=== PATIENT | female | born 1955 | race Caucasian/White ===

== ENCOUNTER 2017-09-27 17:21 | Emergency (ER) | payer MEDICARE ==
--- NOTE | 2017-09-27 18:39 | RAD ---
CHEST 1 VIEW: Date: 09/27/17 HISTORY: Chest pain. COMPARISON: 11/28/16. FINDINGS: Portable upright chest demonstrates normal cardiac silhouette. Pulmonary vessels are normal. Costophr enic angles are clear. No mass. No consolidation. No pneumothorax or osseous abnormalities. IMPRESSION: Mild pulmonary vascular prominence. Correlate for volume overload. POS: [facility]
[2017-09-27 18:59] LABS: #Basophils 0.1 thou/uL (0.0-0.2); #Eosinphils 0.4 thou/uL (0.0-0.7); #Lymphocytes 3.6 thou/uL (1.20-3.40); #Monocytes 0.6 thou/uL (0.11-0.59); #Neutrophils 3.4 thou/uL (1.40-6.50); %Basophils 1.2 % (0.0-1.0); %Eosinophils 4.7 % (0.0-10.0); %Lymphocytes 44.9 % (21.0-51.0); %Monocytes 6.9 % (0.0-10.0); %Neutrophils 42.4 % (42.0-75.0); Hemoglobin 13.7 g/dL (12.0-16.0); Mean Corpuscular HGB CONC 33.7 g/dL (32.0-36.0); Mean Corpuscular Hemoglobin 33.9 pg (27.0-31.0); Mean Platelet Volume 7.6 fL (7.4-10.4); Platelet Count 212 thou/uL (130-400); Red Blood Cell (RBC) Count 4.04 mill/uL (4.20-5.40); White Blood Cell (WBC) Count 8.1 thou/uL (4.8-10.8)
[2017-09-27 19:06] LABS: PTT 29.5 SEC (22.9-36.1)
[2017-09-27 19:21] LABS: ALT (SGPT) 15 U/L (8-55); AST (SGOT) 36 U/L (5-34); Albumin 3.6 g/dL (3.5-5.0); Alkaline Phosphatase 119 U/L (40-150); Anion Gap 14 mmol/L (10-20); BUN (Urea Nitrogen) 18 mg/dL (9.8-20.1); Bilirubin, Total 0.4 mg/dL (0.2-1.2); CK (CPK) 59 U/L (29-168); Calc. Creatinine Clearance 0 mL/min (70-130); Calcium 9.3 mg/dL (7.8-10.44); Carbon Dioxide 28 mmol/L (22-29); Chloride 101 mmol/L (98-107); Estimated GFR-MDRD 79; Globulin 3.6 g/dL (2.4-3.5); Glucose 151 mg/dL (70-105); Lipase 33 U/L (8-78); Potassium 3.8 mmol/L (3.5-5.1); Protein, Total 7.2 g/dL (6.0-8.3); Sodium 139 mmol/L (136-145)
[2017-09-27 19:25] LABS: CKMB 0.8 ng/mL (0-6.6); Troponin I Less than 0.010 ng/mL (< 0.028)
== END 2017-09-27 20:09 | disposition home or self-care (01) ==
LOC: ERS 17:21
DX: R07.2 Precordial pain (principal); I25.10 Atherosclerotic heart disease of native coronary artery without angina pectoris; J45.909 Unspecified asthma, uncomplicated; E11.9 Type 2 diabetes mellitus without complications; E78.5 Hyperlipidemia, unspecified; F41.9 Anxiety disorder, unspecified; F32.9 Major depressive disorder, single episode, unspecified
CPT/HCPCS: 36415; 71045; 80053; 82553; 83690; 84484; 85025; 85610; 85730; 93005

== ENCOUNTER 2018-03-21 11:35 | Inpatient (IN) | payer MEDICARE ==
[2018-03-21] MEDS ORDERED: Naloxone HCl 0.4 mg/ml Vial ONE (12:00)
[2018-03-21 12:12] LABS: #Basophils 0.1 thou/uL (0.0-0.2); #Eosinphils 0.4 thou/uL (0.0-0.7); #Lymphocytes 3.5 thou/uL (1.20-3.40); #Monocytes 0.6 thou/uL (0.11-0.59); #Neutrophils 3.9 thou/uL (1.40-6.50); %Basophils 0.7 % (0.0-1.0); %Eosinophils 4.3 % (0.0-10.0); %Lymphocytes 41.9 % (21.0-51.0); %Monocytes 6.9 % (0.0-10.0); %Neutrophils 46.2 % (42.0-75.0); Hemoglobin 12.1 g/dL (12.0-16.0); Mean Corpuscular HGB CONC 33.9 g/dL (32.0-36.0); Mean Corpuscular Hemoglobin 33.1 pg (27.0-31.0); Mean Corpuscular Volume 97.8 fL (78.0-98.0); Mean Platelet Volume 7.9 fL (7.4-10.4); Platelet Count 215 thou/uL (130-400); RBC Distribution Width 11.4 % (11.5-14.5); Red Blood Cell (RBC) Count 3.66 mill/uL (4.20-5.40); White Blood Cell (WBC) Count 8.4 thou/uL (4.8-10.8)
[2018-03-21 12:29] LABS: pH, Arterial 7.35 (7.35-7.45)
[2018-03-21 12:30] LABS: Actual Bicarbonate (HCO3a) 33.3 mEq/L (22-28); CO2 Tension 62.1 mmHg (35.0-45.0); Hematocrit-ABG 38.8 % (36.0-47.0); Hemoglobin (Hb) 11.9 g/dL (12.0-16.0); O2 Tension (PaO2) 73.3 mmHg (> 80.0)
[2018-03-21 12:31] LABS: ALT (SGPT) 16 U/L (8-55); AST (SGOT) 34 U/L (5-34); Albumin 3.5 g/dL (3.5-5.0); Alkaline Phosphatase 159 U/L (40-150); Anion Gap 12 mmol/L (10-20); BUN (Urea Nitrogen) 20 mg/dL (9.8-20.1); Bilirubin, Total 0.5 mg/dL (0.2-1.2); Calc. Creatinine Clearance 0 mL/min (70-130); Calcium 9.3 mg/dL (7.8-10.44); Carbon Dioxide 31 mmol/L (22-29); Chloride 100 mmol/L (98-107); Estimated GFR-MDRD 54; Globulin 3.7 g/dL (2.4-3.5); Glucose 303 mg/dL (70-105); Lipase 15 U/L (8-78); Potassium 4.2 mmol/L (3.5-5.1); Protein, Total 7.2 g/dL (6.0-8.3); Sodium 139 mmol/L (136-145)
[2018-03-21 12:31] LABS: ALV-art Gradient 48.715 (0-20); Analyzer IN Cardio ER; Calcium, Ionized 1.2 mmol/L (1.12-1.30); Puncture Site LBA
--- NOTE | 2018-03-21 12:47 | RAD ---
FRONTAL VIEW CHEST: COMPARISON: 09/27/17. INDICATION: Altered mental status. FINDINGS: The cardiac silhouette is enlarged. There is limited visualization at the lung base. The upper to m id lung zones are clear bilaterally. There is vascular prominence. IMPRESSION: 1. Congestive heart failure. 2. Limited visualization at the lung bases. POS: [facility]
[2018-03-21 13:42] LABS: Acetaminophen Less than 6.0 mcg/mL (10.0-30.0); Alcohol Less than 10 mg/dL (Less than 10); Magnesium 1.7 mg/dL (1.6-2.6); Salicylate Less than 8.0 mg/dL (15.0-30.0)
--- NOTE | 2018-03-21 13:46 | CT ---
CT OF THE BRAIN WITHOUT CONTRAST: INDICATION: Altered mental status and lethargy. COMPARISON: Prior exam dated 01/15/17. FINDINGS: No acute infarct, hemorrhage, or hydrocephalus is present. The septum pellucidum and third ventricle are midline. Mastoid air cells are clear. Visualized sinus is clear. The skull is intact. IMPRESSION: No acute intracranial abnormality. POS: [facility]
[2018-03-21 14:20] LABS: CKMB 0.9 ng/mL (0-6.6); Troponin I Less than 0.010 ng/mL (< 0.028)
[2018-03-21] MEDS ORDERED: Furosemide 40 MG/4 ML VIAL ONE (14:28)
[2018-03-21] MEDS ORDERED: Furosemide 20 MG/2 ML VIAL ONE (14:28)
[2018-03-21 15:04] LABS: Bilirubin Small (Negative); Blood, Urine Negative (Negative); Clarity CLEAR (Clear); Glucose, Urine (Dipstick) 500 mg/dL (Negative); Leukocyte Negative (Negative); Nitrite Negative (Negative); Protein, Urine (Dipstick) Negative (Neg-Trace); Specific Gravity, Urine 1.036 (1.002-1.036); pH, Urine 5.5 (5.0-9.0)
--- NOTE | 2018-03-21 15:08 | HP ---
PRIMARY CARE PHYSICIAN: Adrien Bowen M.D. REASON FOR ADMISSION: Acute encephalopathy. HISTORY OF PRESENT ILLNESS: A 62-year-old female who has underlying history of morbid obesity and sl eep apnea who is noncompliant with her CPAP use at home. She took extra Ashton during night time for her pain and subsequently she was more lethargic. She was less responsive and that is why she was br ought to emergency room for evaluation. Unfortunately, this patient is lethargic, sleepy and she is not able to provide any history, but history obtained from ER physician. In the emergency room, rosa ent had blood gas done which showed CO2 retention. The patient was kept on BiPAP. After that, alberto nt was slightly started responding. Initially in the emergency room, Narcan was tried but that did n ot significantly change her lethargy and they tried ammonia after that the patient slightly woke up, but again she went to sleep. At this point because of her lethargy and sleepiness, it was not safe fo r her discharge from the ER to the home and the patient is requiring BiPAP and that is why we are goi ng to admit this patient in [facility]. REVIEW OF SYSTEMS: All review of systems tried to review the patient, but unable to review at this p oint because of altered mental status. PAST MEDICAL HISTORY: Chronic respiratory failure requiring home oxygen, morbid obesity with obesity hypoventilation syndrome, obstructive sleep apnea noncompliance with the CPAP machine, diabetes type 2, chronic pain disorder, gastroesophageal reflux disease, dyslipidemia, asthma, overactive bladder, chronic insomnia, chronic diastolic heart failure, secondary to right-sided heart failure from cor p ulmonale from obesity hypoventilation syndrome, peripheral neuropathy. PAST SURGICAL HISTORY: Cholecystectomy, tubal ligation, hernia repair, wrist surgery, tummy tuck stefano vitaly, sciatic nerve resection. PAST PSYCHIATRIC HISTORY: Insomnia, chronic pain disorder, anxiety and depression. FAMILY HISTORY: Positive for COPD to her mother. No family history of coronary artery disease, stro ke or cancer. SOCIAL HISTORY: Patient lives by herself. Her mother checks on weekdays. No history of tobacco, al cohol or illicit drug abuse. ALLERGIES: CODEINE, DEMEROL, REGLAN, MORPHINE. CODE STATUS: FULL CODE. Patient's mother is surrogate decision maker. CURRENT HOME MEDICATIONS: Paxil 40 mg p.o. daily, Lasix 20 mg p.o. daily, Ashton 10 one tablet q.4 ho urly p.r.n., gabapentin 600 mg twice daily, Synthroid 25 mcg p.o. daily, atenolol 100 mg p.o. daily, amlodipine 10 mg p.o. daily, pravastatin 40 mg p.o. at bedtime, Protonix 40 mg twice daily, Phenergan 25 mg 3 times daily p.r.n. EMERGENCY ROOM COURSE: Patient is given Lasix 60 mg, IV fluid 500 mL, Narcan 0.4 mg. PHYSICAL EXAMINATION: VITAL SIGNS: On arrival, blood pressure 112/81, pulse 60, respiratory rate 13, saturation 91% on truong m air, weight 155.1 kilograms, temperature 98.8. GENERAL: The patient is currently lethargic, sleepy, only responsive to noxious stimuli. She is on BiPAP. HEAD: Normocephalic, atraumatic. EYES: Pupils round, reactive to light. Extraocular muscle intact. ENT: Oropharynx within normal limits. Moist mucous membranes. No oral lesion, no pharyngeal erythe ma, no exudate. NECK: Supple, no JVD, short neck. Difficult to assess JVD though. LUNGS: Clear to auscultation anteriorly without any rhonchi or rales. CARDIAC: S1, S2 appears regular. No murmur, no gallop, no rub. ABDOMEN: Morbid obesity limiting examination. The patient has soft abdomen. No distention. Bowel sounds present, no organomegaly, no mass. BACK: Examination unremarkable, no CVA tenderness. EXTREMITIES: Upper extremity passive movements of all joints are normal. Lower extremity passive mo vements of all joints are normal. NEUROLOGIC: Detailed neurological examination is not possible because of altered mental status. Pat ient is slightly sleepy and lethargic on BiPAP. IMAGING DATA AND SIGNIFICANT DIAGNOSTIC LABORATORY DATA: EKG showing normal sinus rhythm, low voltag e QRS complex. CT brain based on my review, no acute intracranial process. Chest x-ray reported as finding suggestive of congestive heart failure, cardiomegaly. CBC: WBC 8.4, hemoglobin 12.1, platel et 215. ABG: PH 7.35, pCO2 62.1, pO2 of 73.3, bicarbonate 33.3, saturation 95%. BMP: Sodium 139, potassium 4.2, chloride 100, carbon dioxide 31, anion gap 12, BUN 20, creatinine 1.03, glucose 303, c alcium 9.3, magnesium 1.7. LFT: AST 34, ALT 16, alkaline phosphatase 159, albumin 3.5, lipase 15. TSH 8.69. BNP 53.0. Cardiac enzymes negative. Ammonia level 57. Serum drug screen; salicylate lev el less than 8. Acetaminophen level less than 6. Blood alcohol level less than 10. ASSESSMENT AND PLAN/IMPRESSION: 1. Acute encephalopathy, likely due to CO2 narcosis or pain medication. Patient's CT brain is negat rosy for any acute intracranial process. Her CBC is normal. BMP showing hyperglycemia and her TSH is also within normal limit. Her CO2 is also elevated. At this point, we will hold on all sedative me dications. We will continue with BiPAP and we will closely monitor overnight in IMCU. Pulmonary mariya up will be consulted for opinion. 2. Morbid obesity with obesity hypoventilation syndrome/obstructive sleep apnea. Patient has chroni c CO2 retention and she is noncompliant with continuous positive airway pressure machine. Pulmonary group was consulted. The patient needs to use continuous positive airway pressure machine at home al l the time to prevent recurrent admission for CO2 narcosis. 3. Chronic respiratory acidosis with metabolic compensation from problem #2. 4. Chronic diastolic heart failure. Currently, patient appears to be euvolemic. Her chest x-ray sh ows pulmonary vascular congestion, but clinical examination is showing euvolemic status. We will con tinue Lasix 20 mg p.o. daily. Patient is given Lasix 60 mg in the emergency room. 5. Hypothyroidism. TSH is elevated and that is why we will increase dose of levothyroxine 250 mcg p .o. daily. 6. Dyslipidemia. We will continue pravastatin 40 mg p.o. at bedtime. 7. Hypertension. We will continue atenolol 100 mg p.o. daily and amlodipine 10 mg p.o. daily. If p ulse rate is less than 60, then we will hold atenolol. If blood pressure is less than 120, then we w ill hold amlodipine as well. 8. Gastroesophageal reflux disease. We will continue Protonix 40 mg p.o. daily. 9. Diabetes type 2, not well controlled. We will continue with insulin as per sliding scale protoco l. We will continue Levemir 25 units subcu at bedtime. 10. Asthma. We will continue DuoNeb q.6 hourly p.r.n. basis. 11. Deep venous thrombosis prophylaxis. Lovenox 40 mg subcu daily. 12. Gastrointestinal prophylaxis, Protonix 40 mg p.o. daily. CODE STATUS: The patient is FULL CODE. Patient's mother is surrogate decision maker. Disposition plan based on clinical course. We are expecting patient's stay in hospital more than 2 m idnights. Plan of care discussed with the patient in detail.
[2018-03-21 15:14] LABS: Amphetamine Not Detected (NotDetected); Barbiturates Screen Not Detected (NotDetected); Benzodiazepine Screen Detected (NotDetected); Cocaine Metabolite Screen Not Detected (NotDetected); Medtox Control Line Valid? VALID (VALID); Medtox Reader # READER 1; Methadone Not Detected (NotDetected); Methamphetamine Not Detected (NotDetected); Opiate Screen Detected (NotDetected); Oxycodone Screen Not Detected (NotDetected); Phencyclidine (PCP) Not Detected (NotDetected); THC/Cannabinoid Screen Not Detected (NotDetected); Tricyclic Screen Not Detected (NotDetected)
[2018-03-21 16:02] LABS: Troponin I Less than 0.010 ng/mL (< 0.028)
[2018-03-21 18:41] VITALS: BMI 57.6
[2018-03-21] MEDS ORDERED: Chloraseptic Spray 180 ml Bottle PO PRN (19:08)
[2018-03-21] MEDS ORDERED: Dextrose 50% Abboject 50 ML SYRINGE SLOW IVP PRN (19:08)
[2018-03-21] MEDS ORDERED: HumaLOG 300 UNITS/3 ML VIAL SC PRN (19:08)
[2018-03-21] MEDS ORDERED: Eucerin (Mineral Oil/Petrolatum,White) 30 gm Jar TOP PRN (19:08)
[2018-03-21] MEDS ORDERED: Sodium Chloride 0.65% Nasal 44 ML BOT EA NARE PRN (19:08)
[2018-03-21] MEDS ORDERED: Artificial Tears 18 DROP/0.9 ML EA EYE PRN (19:08)
[2018-03-21] MEDS ORDERED: hydrALAZINE 20 MG/ML VIAL SLOW IVP PRN (19:08)
[2018-03-21] MEDS ORDERED: Acetaminophen 325 MG TAB PO PRN (19:08)
[2018-03-21] MEDS ORDERED: Milk Of Magnesia 30 ML UDCUP PO PRN (19:08)
[2018-03-21] MEDS ORDERED: Loperamide HCl 2 MG CAP PO PRN (19:08)
[2018-03-21] MEDS ORDERED: Ondansetron ODT 4 MG TAB PO PRN (19:08)
[2018-03-21] MEDS ORDERED: Ondansetron HCl/PF 4 MG/2 ML Vial IVP PRN (19:08)
[2018-03-21] MEDS ORDERED: Mag-Al 1200 mg/1200 mg/30 ML UDCUP PO PRN (19:08)
[2018-03-21] MEDS ORDERED: Diabetic Tussin 200 MG/10 ML UDCUP PO PRN (19:08)
[2018-03-21] MEDS ORDERED: Senokot 8.6 MG TAB PO PRN (19:08)
[2018-03-21] MEDS ORDERED: Dextrose 5% in Water 1,000 ML IV PRN (19:08)
[2018-03-21 19:20] LABS: Troponin I Less than 0.010 ng/mL (< 0.028)
[2018-03-21] MEDS: Insulin Glargine 25 UNITS in Pre-Filled Syringe 1 EACH SC SCH (20:58)
[2018-03-21] MEDS: Pravastatin Sodium 40 MG TAB PO SCH (20:58)
[2018-03-22 04:21] LABS: #Eosinphils 0.3 thou/uL (0.0-0.7); #Lymphocytes 3.1 thou/uL (1.20-3.40); #Monocytes 0.6 thou/uL (0.11-0.59); #Neutrophils 4.8 thou/uL (1.40-6.50); %Basophils 0.5 % (0.0-1.0); %Eosinophils 3.3 % (0.0-10.0); %Lymphocytes 34.8 % (21.0-51.0); %Monocytes 6.6 % (0.0-10.0); %Neutrophils 54.9 % (42.0-75.0); Hemoglobin 12.3 g/dL (12.0-16.0); Mean Corpuscular HGB CONC 33.8 g/dL (32.0-36.0); Mean Corpuscular Hemoglobin 33.1 pg (27.0-31.0); Mean Corpuscular Volume 97.9 fL (78.0-98.0); Mean Platelet Volume 7.7 fL (7.4-10.4); Platelet Count 214 thou/uL (130-400); RBC Distribution Width 11.4 % (11.5-14.5); Red Blood Cell (RBC) Count 3.73 mill/uL (4.20-5.40); White Blood Cell (WBC) Count 8.8 thou/uL (4.8-10.8)
[2018-03-22 04:43] LABS: Anion Gap 11 mmol/L (10-20); BUN (Urea Nitrogen) 15 mg/dL (9.8-20.1); Calc. Creatinine Clearance 185 mL/min (70-130); Calcium 9.3 mg/dL (7.8-10.44); Carbon Dioxide 37 mmol/L (22-29); Chloride 97 mmol/L (98-107); Estimated GFR-MDRD 75; Glucose 196 mg/dL (70-105); Potassium 3.7 mmol/L (3.5-5.1); Sodium 141 mmol/L (136-145)
[2018-03-22] MEDS: HumaLOG 300 UNITS/3 ML VIAL SC PRN ×3 (06:34→18:31)
[2018-03-22] MEDS: Levothyroxine Sodium 50 MCG TAB PO SCH (06:34)
[2018-03-22] MEDS: Enoxaparin Sodium 40 MG/0.4 ML SYRINGE SC SCH (08:57)
[2018-03-22] MEDS: Atenolol 50 MG TAB PO SCH (08:57)
[2018-03-22] MEDS: Amlodipine 10 MG TAB PO SCH (08:58)
[2018-03-22] MEDS: PARoxetine 20 MG TAB PO SCH (08:59)
[2018-03-22] MEDS ORDERED: Pantoprazole 40 MG VIAL IVP SCH (09:00)
[2018-03-22] MEDS: HYDROcodone/Acetaminophen 10/325 mg Tablet PO PRN ×3 (09:23→21:33)
[2018-03-22] MEDS ORDERED: Gabapentin 300 MG CAP PO SCH (09:45)
[2018-03-22] MEDS ORDERED: guaiFENesin ER 600 MG TAB PO SCH (10:00)
--- NOTE | 2018-03-22 11:53 | PDOC.PN ---
- Subjective Encounter Start Date: 03/22/18 Encounter Start Time: 10:10 -: old records requested/rev Patient seen and examined. No new complaints. No overnight events pt was on bipap last night, this morning she is more alert she has broken cpap at home and not using - Objective Resuscitation Status: Resuscitation Status FULL:Full Resuscitation MAR Reviewed: Yes Vital Signs & Weight: Vital Signs (12 hours) Temp Pulse Resp BP BP Pulse Ox 03/22/18 11:48 98.2 F 83 19 100/46 L 96 03/22/18 08:58 72 128/89 03/22/18 08:57 72 120/89 03/22/18 07:48 97 03/22/18 07:37 98.3 F 72 18 125/65 96 03/22/18 04:24 97.1 F L 61 15 120/62 99 03/22/18 02:20 60 Weight Weight 336 lb 3.2 oz I&O: 03/21/18 03/22/18 03/23/18 06:59 06:59 06:59 Intake Total 250 Output Total 1350 Balance -1100 Result Diagrams: 03/22/18 03:51 03/22/18 03:51 Additional Labs: Accuchecks 03/22/18 03/22/18 03/21/18 10:49 06:04 20:58 POC Glucose 248 H 210 H 233 H EKG Reviewed by me: Yes (nsr) Phys Exam - Physical Examination Constitutional: NAD HEENT: PERRLA, moist MMs, sclera anicteric Neck: no JVD, supple Respiratory: no wheezing, no rales, no rhonchi Cardiovascular: RRR, no significant murmur, no rub Gastrointestinal: soft, non-tender, no distention, positive bowel sounds morbid obesity+ Musculoskeletal: no edema, pulses present Neurological: non-focal, normal sensation, moves all 4 limbs Lymphatic: no nodes Psychiatric: normal affect, A&O x 3 Skin: no rash, normal turgor Dx/Plan (1) Acute metabolic encephalopathy Code(s): G93.41 - METABOLIC ENCEPHALOPATHY Status: Resolved (2) Anxiety and depression Code(s): F41.9 - ANXIETY DISORDER, UNSPECIFIED; F32.9 - MAJOR DEPRESSIVE DISORDER, SINGLE EPISODE, UNSPECIFIED Status: Chronic (3) Chronic diastolic (congestive) heart failure Code(s): I50.32 - CHRONIC DIASTOLIC (CONGESTIVE) HEART FAILURE Status: Chronic (4) Chronic pain Code(s): G89.29 - OTHER CHRONIC PAIN Status: Chronic (5) Chronic respiratory failure with hypoxia and hypercapnia Code(s): J96.11 - CHRONIC RESPIRATORY FAILURE WITH HYPOXIA; J96.12 - CHRONIC RESPIRATORY FAILURE WITH HYPERCAPNIA Status: Chronic (6) DM type 2 (diabetes mellitus, type 2) Status: Chronic (7) Diabetic neuropathy Code(s): E11.40 - TYPE 2 DIABETES MELLITUS WITH DIABETIC NEUROPATHY, UNSP Status: Chronic (8) Dyslipidemia Code(s): E78.5 - HYPERLIPIDEMIA, UNSPECIFIED Status: Chronic (9) GERD (gastroesophageal reflux disease) Code(s): K21.9 - GASTRO-ESOPHAGEAL REFLUX DISEASE WITHOUT ESOPHAGITIS Status: Chronic (10) Morbid obesity with BMI of 50.0-59.9, adult Code(s): E66.01 - MORBID (SEVERE) OBESITY DUE TO EXCESS CALORIES; Z68.43 - BODY MASS INDEX (BMI) 50-59.9 , ADULT Status: Chronic (11) Right heart failure Status: Chronic (12) Sleep apnea, obstructive Code(s): G47.33 - OBSTRUCTIVE SLEEP APNEA (ADULT) (PEDIATRIC) Status: Chronic - Plan cont current plan of care, respiratory therapy * significantly improved with bipap * she will need sleep study and new cpap machine * medication reviewed as below * symptomatic treatment * today will ambulate * she has home care and prefer to go to home on discharge * expecting discharge tomorrow if stable. Review of Systems - Review of Systems Eyes: negative: Pain, Vision Change, Conjunctivae Inflammation, Eyelid Inflammation, Redness, Other ENT: negative: Ear Pain, Ear Discharge, Nose Pain, Nose Discharge, Nose Congestion, Mouth Pain, Mouth Swelling, Throat Pain, Throat Swelling, Other Respiratory: negative: Cough, Dry, Shortness of Breath, Hemoptysis, SOB with Excertion, Pleuritic Pain, Sputum, Wheezing Cardiovascular: negative: chest pain, palpitations, orthopnea, paroxysmal nocturnal dyspnea, edema, light headedness, other Gastrointestinal: negative: Nausea, Vomiting, Abdominal Pain, Diarrhea, Constipation, Melena, Hematochezia, Other Genitourinary: negative: Dysuria, Frequency, Incontinence, Hematuria, Retention , Other Musculoskeletal: negative: Neck Pain, Shoulder Pain, Arm Pain, Back Pain, Hand Pain, Leg Pain, Foot Pain, Other Skin: negative: Rash, Lesions, Adam, Bruising, Other - Medications/Allergies Allergies/Adverse Reactions: Allergies Allergy/AdvReac Type Severity Reaction Status Date / Time morphine Allergy Severe Anaphylaxis Verified 03/22/18 06:51 codeine Allergy Verified 03/22/18 06:51 metoclopramide HCl Allergy Verified 03/22/18 06:51 [From Reglan] tizanidine [From Zanaflex] Allergy Verified 03/22/18 06:51 Medications: Current Medications Acetaminophen (Tylenol) 650 mg PO Q4H PRN PRN Reason: Headache/Fever or Pain Last Admin: 03/22/18 03:07 Dose: 650 mg Hydrocodone Bitart/Acetaminophen (Michie 10/325) 1 tab PO Q4H PRN PRN Reason: Breakthrough Pain Last Admin: 03/22/18 09:23 Dose: 1 tab Al Hydroxide/Mg Hydroxide (Maalox) 30 ml PO Q6H PRN PRN Reason: Heartburn or Indigestion Albuterol/Ipratropium (Duoneb) 3 ml NEB [id number] PRN PRN Reason: SOB &/or Wheezing Amlodipine Besylate (Norvasc) 10 mg PO DAILY [facility] Last Admin: 03/22/18 08:58 Dose: 10 mg Artificial Tears (Tears Naturale) 0 drop EA EYE PRN PRN PRN Reason: Dry Eyes Atenolol (Tenormin) 50 mg PO DAILY [facility] Last Admin: 03/22/18 08:57 Dose: 50 mg Cefdinir (Omnicef) 300 mg PO BID [facility] Dextrose/Water (Dextrose 50%) 25 gm SLOW IVP PRN PRN PRN Reason: Hypoglycemia Enoxaparin Sodium (Lovenox) 40 mg SC 0900 [facility] Last Admin: 03/22/18 08:57 Dose: 40 mg Gabapentin (Neurontin) 600 mg PO BID [facility] Glucagon (Glucagon) 1 mg IM PRN PRN PRN Reason: Hypoglycemia Guaifenesin (Robitussin Sf) 200 mg PO Q4H PRN PRN Reason: Cough Guaifenesin (Mucinex) 600 mg PO Q12HR [facility] Hydralazine HCl (Apresoline) 10 mg SLOW IVP Q4H PRN PRN Reason: Systolic BP > 180 Dextrose/Water (D5w) 1,000 mls @ 0 mls/hr IV .Q0M PRN; As Directed PRN Reason: Hypoglycemia Insulin Glargine 25 units/ (Miscellaneous Medication) 0.25 mls @ 0 mls/hr SC [facility] Last Admin: 03/21/18 20:58 Dose: 0.25 mls Insulin Human Lispro (Humalog) 0 units SC .AGGRESSIVE SLIDING PRN PRN Reason: Aggressive Correctional Scale Last Admin: 03/22/18 11:49 Dose: 6 unit Insulin Human Lispro (Humalog) 0 units SC .BEDTIME SLIDING SC PRN PRN Reason: Bedtime Correctional Scale Levothyroxine Sodium (Synthroid) 50 mcg PO 0600 [facility] Last Admin: 03/22/18 06:34 Dose: 50 mcg Loperamide HCl (Imodium) 2 mg PO PRN PRN PRN Reason: Diarrhea/Loose Stools Magnesium Hydroxide (Milk Of Magnesium) 30 ml PO DAILYPRN PRN PRN Reason: Constipation Mineral Oil/White Petrolatum (Eucerin Cream) 0 gm TOP BIDPRN PRN PRN Reason: Dry Skin Ondansetron HCl (Zofran Odt) 4 mg PO Q6H PRN PRN Reason: Nausea/Vomiting Ondansetron HCl (Zofran) 4 mg IVP Q6H PRN PRN Reason: Nausea/Vomiting Last Admin: 03/22/18 03:13 Dose: 4 mg Pantoprazole Sodium (Protonix) 40 mg IVP DAILY [facility] Last Admin: 03/22/18 08:58 Dose: 40 mg Paroxetine HCl (Paxil) 40 mg PO DAILY [facility] Last Admin: 03/22/18 08:59 Dose: 40 mg Phenol (Chloraseptic [place] 180 Ml Bot) 0 ml PO PRN PRN PRN Reason: Sore Throat Pravastatin Sodium (Pravachol) 40 mg PO [facility] Last Admin: 03/21/18 20:58 Dose: 40 mg Senna (Senokot) 2 tab PO HSPRN PRN PRN Reason: Constipation Sodium Chloride ([place] Nasal [place] 0.65%) 0 ml EA NARE QIDPRN PRN PRN Reason: Nasal Congestion Sodium Chloride (Flush - Normal Saline) 10 ml IVF Q12HR [facility] Last Admin: 03/22/18 08:59 Dose: 10 ml Sodium Chloride (Flush - Normal Saline) 10 ml IVF PRN PRN PRN Reason: Saline Flush
[2018-03-22] MEDS ORDERED: HYDROcodone/Acetaminophen 10/325 mg Tablet PO SCH (13:00)
[2018-03-22] MEDS: Cefdinir 300 MG CAP PO SCH (21:26)
[2018-03-22] MEDS: guaiFENesin ER 600 MG TAB PO SCH (21:27)
[2018-03-22] MEDS: Pravastatin Sodium 40 MG TAB PO SCH (21:27)
[2018-03-22] MEDS: Gabapentin 300 MG CAP PO SCH (21:27)
[2018-03-22] MEDS: Insulin Glargine 25 UNITS in Pre-Filled Syringe 1 EACH SC SCH (21:29)
--- NOTE | 2018-03-23 00:59 | CON ---
DATE OF CONSULTATION: 03/22/2018 HISTORY OF PRESENT ILLNESS: This is a 62-year-old morbidly obese female who seeks care at [facility]. She has got multiple doctors she sees there. In fact, she was recently underwent a cardiac catheteri zation. She says the doctor told that the catheterization was normal. She has known history of severe sleep apnea, apparently took an Ativan yesterday and had some kind of reaction, presented with mental status change. All night, she was on the CPAP machine. This morning, awake, alert, and responsive. She says she is ready to go home. PAST MEDICAL HISTORY: Extensive history well outlined in the past medical history, is pertinent for morbid obesity, coronary artery disease, congestive heart failure, COPD, asthma, fibromyalgia, and ch ronic pain. PAST SURGICAL HISTORY: Gallbladder, hernia, tubal ligation. SOCIAL HISTORY: Alcohol none. Tobacco none. MEDICATIONS: List of medicines from home includes a long list including amlodipine 10, Symbicort inh aler, Neurontin 600, [place] p.r.n., insulin 5 units twice a day, Levemir 25 at bedtime, Ativan 1 mg, P axil 40, pravastatin 40. ALLERGIES: MORPHINE, CODEINE, METOPROLOL, ZANAFLEX. SOCIAL HISTORY: Disabled. REVIEW OF SYSTEMS: Pertinent for cough productive of green sputum. PHYSICAL EXAMINATION: GENERAL: Morbidly obese female. Awake, alert and responsive. VITAL SIGNS: Blood pressure is 120/89, sats are 97% temperature 98. CHEST: Decreased breath sounds, no wheezing. CARDIAC: Normal S1, S2. No gallops. ABDOMEN: Soft. No masses. EXTREMITIES: No edema. LABORATORY DATA AND IMAGING: White count 8000, H&H is 12 and 36, platelet count 214. Electrolytes a re normal. X-ray was unremarkable. CT of the brain was done, which was otherwise unremarkable. IMPRESSION: 1. Metabolic encephalopathy, resolved. 2. Morbid obesity. 3. Sleep apnea with recent cardiac catheterization, negative. 4. Chronic pain. 5. Bronchitis. PLAN: Empiric antibiotics have been initiated along with her home pain medication. Aggressive PT, s upportive care. Hopefully, she can be discharged home in the next 24-48 hours. This is a consultation note of 70 minutes, in which 50% spent in direct patient care.
[2018-03-23] MEDS: HYDROcodone/Acetaminophen 10/325 mg Tablet PO PRN ×2 (03:24→09:45)
[2018-03-23 03:41] LABS: #Eosinphils 0.3 thou/uL (0.0-0.7); #Lymphocytes 3.4 thou/uL (1.20-3.40); #Monocytes 0.4 thou/uL (0.11-0.59); #Neutrophils 3.1 thou/uL (1.40-6.50); %Basophils 0.2 % (0.0-1.0); %Eosinophils 3.7 % (0.0-10.0); %Lymphocytes 46.6 % (21.0-51.0); %Monocytes 5.8 % (0.0-10.0); %Neutrophils 43.6 % (42.0-75.0); Hemoglobin 12.4 g/dL (12.0-16.0); Mean Corpuscular HGB CONC 32.9 g/dL (32.0-36.0); Mean Corpuscular Hemoglobin 32.6 pg (27.0-31.0); Mean Corpuscular Volume 99.1 fL (78.0-98.0); Mean Platelet Volume 7.6 fL (7.4-10.4); Platelet Count 197 thou/uL (130-400); RBC Distribution Width 11.3 % (11.5-14.5); White Blood Cell (WBC) Count 7.2 thou/uL (4.8-10.8)
[2018-03-23 03:59] LABS: Anion Gap 11 mmol/L (10-20); BUN (Urea Nitrogen) 17 mg/dL (9.8-20.1); Calc. Creatinine Clearance 190 mL/min (70-130); Calcium 9.1 mg/dL (7.8-10.44); Carbon Dioxide 34 mmol/L (22-29); Chloride 99 mmol/L (98-107); Estimated GFR-MDRD 78; Glucose 196 mg/dL (70-105); Potassium 3.8 mmol/L (3.5-5.1); Sodium 140 mmol/L (136-145)
[2018-03-23] MEDS: Levothyroxine Sodium 50 MCG TAB PO SCH (05:56)
[2018-03-23] MEDS: HumaLOG 300 UNITS/3 ML VIAL SC PRN (06:40)
--- NOTE | 2018-03-23 08:08 | DIS ---
DATE OF ADMISSION: 03/21/2018 DATE OF DISCHARGE: 03/23/2018 PRIMARY CARE PHYSICIAN: Delia Canas M.D. DISCHARGE DISPOSITION: Home with home health. PRIMARY DISCHARGE DIAGNOSIS: Acute metabolic encephalopathy, resolved. SECONDARY DISCHARGE DIAGNOSES: Obstructive sleep apnea, right-sided heart failure, morbid obesity wi th body mass index 57, gastroesophageal reflux disease, dyslipidemia, diabetes type 2, diabetic neuro raissa, chronic respiratory failure with hypoxia and hypercapnia on home oxygen, chronic pain disorder , history of lupus, fibromyalgia, chronic diastolic heart failure, anxiety and depression. PRIMARY PROCEDURES/OPERATIONS: None. RADIOLOGICAL INVESTIGATION: Chest x-ray was unremarkable, but CT brain was negative for any acute in tracranial process. SIGNIFICANT LABORATORIES: WBC 7.2, hemoglobin 12.4, platelet 197, CO2 62.1. Sodium 140, potassium 3 .8, BUN 17, creatinine 0.76 and calcium 9.1. Cardiac enzymes negative x3. Liver enzymes normal. Al bumin 3.5, BNP 53, TSH 8.69. Urinalysis unremarkable. Urine drug screen positive for benzos and opi ates. Serum drug screen negative. Blood culture and urine culture negative. DISCHARGE MEDICATIONS: Albuterol sulfate 2 puffs q.6 hourly p.r.n., amlodipine 10 mg p.o. daily, ate nolol 100 mg p.o. daily, Symbicort 2 puff inhalation b.i.d., gabapentin 600 mg p.o. b.i.d., Rohwer 10 one tablet q.4 hourly p.r.n., Humalog 5 units subcu t.i.d., Levemir 25 units subcu at bedtime, loraze terence 1 mg p.o. daily, Paxil 40 mg p.o. daily, pravastatin 40 mg p.o. at bedtime, Synthroid 25 mcg p.o. daily. CONTRAINDICATIONS: None. CODE STATUS: FULL CODE. INPATIENT MOWING MACHINE OPERATOR: Dr. Leigh. TEST RESULTS PENDING ON DISCHARGE: None. ALLERGIES: MORPHINE, CODEINE, TIZANIDINE, REGLAN. 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 HOSPITAL COURSE: A 62-year-old female who has chronic pain disorder. During night time, she took ex tra Rohwer for her chronic pain and that is why she became more lethargic and sleepy. She has underly ing history of sleep apnea, but she was not using CPAP machine because it was broken. The patient wa s less arousable and that is why paramedics were called and patient was brought to emergency room, sh itz was found with CO2 narcosis. She was treated with BiPAP with significant improvement. Overnight, we provided patient education to be compliant with the CPAP machine as well as we discussed about how to use pain medication. During this admission, we found with elevated TSH and that is why we starte d levothyroxine 25 mcg p.o. daily. Further dose will be adjusted by primary care physician. The patient is doing very well today. The patient does not want to go to any kind of rehabilitation or senior living home placement. She has significant support from her mother as well as other home care provider. The patient wanted to go home. The patient is seen and examined at bedside today. Please see my progress note from today for furthe r details. The patient is medically stable for discharge today. ADDENDUM: Dr. Leigh started 300 mg p.o. b.i.d. and Mucinex 600 mg p.o. b.i.d. which are also going to prescribed to her on discharge and we are discharging her with levothyroxine 50 mcg p.o. daily, not 25 mcg p.o. daily.
[2018-03-23] MEDS: Enoxaparin Sodium 40 MG/0.4 ML SYRINGE SC SCH (09:46)
[2018-03-23] MEDS: Cefdinir 300 MG CAP PO SCH (09:46)
[2018-03-23] MEDS: Atenolol 50 MG TAB PO SCH (09:46)
--- NOTE | 2018-03-23 09:46 | PDOC.PN ---
- Subjective Encounter Start Date: 03/23/18 Encounter Start Time: 09:10 Patient seen and examined. No new complaints. No overnight events - Objective Resuscitation Status: Resuscitation Status FULL:Full Resuscitation MAR Reviewed: Yes Vital Signs & Weight: Vital Signs (12 hours) Temp Pulse Resp BP Pulse Ox 03/23/18 08:00 98.5 F 62 12 98 03/23/18 07:42 98.5 F 62 12 135/75 96 03/23/18 04:00 97.5 F L 61 13 130/70 97 03/22/18 23:51 97.5 F L 65 18 141/62 H 96 Weight Weight 332 lb 1.6 oz I&O: 03/22/18 03/23/18 03/24/18 06:59 06:59 06:59 Intake Total 250 1590 Output Total 1350 820 Balance -1100 770 Result Diagrams: 03/23/18 03:19 03/23/18 03:19 Additional Labs: Accuchecks 03/23/18 03/22/18 03/22/18 06:20 19:57 17:06 POC Glucose 217 H 250 H 211 H 03/22/18 10:49 POC Glucose 248 H EKG Reviewed by me: Yes (nsr) Phys Exam - Physical Examination Constitutional: NAD HEENT: PERRLA, moist MMs, sclera anicteric Neck: no JVD, supple Respiratory: no wheezing, no rales, no rhonchi Cardiovascular: RRR, no significant murmur, no rub Gastrointestinal: soft, non-tender, no distention, positive bowel sounds Musculoskeletal: no edema, pulses present Neurological: non-focal, normal sensation, moves all 4 limbs Psychiatric: normal affect, A&O x 3 Skin: no rash, normal turgor Dx/Plan (1) Acute metabolic encephalopathy Code(s): G93.41 - METABOLIC ENCEPHALOPATHY Status: Resolved (2) Anxiety and depression Code(s): F41.9 - ANXIETY DISORDER, UNSPECIFIED; F32.9 - MAJOR DEPRESSIVE DISORDER, SINGLE EPISODE, UNSPECIFIED Status: Chronic (3) Chronic diastolic (congestive) heart failure Code(s): I50.32 - CHRONIC DIASTOLIC (CONGESTIVE) HEART FAILURE Status: Chronic (4) Chronic pain Code(s): G89.29 - OTHER CHRONIC PAIN Status: Chronic (5) Chronic respiratory failure with hypoxia and hypercapnia Code(s): J96.11 - CHRONIC RESPIRATORY FAILURE WITH HYPOXIA; J96.12 - CHRONIC RESPIRATORY FAILURE WITH HYPERCAPNIA Status: Chronic (6) DM type 2 (diabetes mellitus, type 2) Status: Chronic (7) Diabetic neuropathy Code(s): E11.40 - TYPE 2 DIABETES MELLITUS WITH DIABETIC NEUROPATHY, UNSP Status: Chronic (8) Dyslipidemia Code(s): E78.5 - HYPERLIPIDEMIA, UNSPECIFIED Status: Chronic (9) GERD (gastroesophageal reflux disease) Code(s): K21.9 - GASTRO-ESOPHAGEAL REFLUX DISEASE WITHOUT ESOPHAGITIS Status: Chronic (10) Morbid obesity with BMI of 50.0-59.9, adult Code(s): E66.01 - MORBID (SEVERE) OBESITY DUE TO EXCESS CALORIES; Z68.43 - BODY MASS INDEX (BMI) 50-59.9 , ADULT Status: Chronic (11) Right heart failure Status: Chronic (12) Sleep apnea, obstructive Code(s): G47.33 - OBSTRUCTIVE SLEEP APNEA (ADULT) (PEDIATRIC) Status: Chronic - Plan cont current plan of care, continue antibiotics, respiratory therapy * ALEYDA yadav * medication reviewed as below * symptomatic treatment * stable for discharge * she will follow up with pulmonary for sleep study * advised to avoid narcotics * see my discharge summery. Review of Systems - Review of Systems Eyes: negative: Pain, Vision Change, Conjunctivae Inflammation, Eyelid Inflammation, Redness, Other ENT: negative: Ear Pain, Ear Discharge, Nose Pain, Nose Discharge, Nose Congestion, Mouth Pain, Mouth Swelling, Throat Pain, Throat Swelling, Other Respiratory: negative: Cough, Dry, Shortness of Breath, Hemoptysis, SOB with Excertion, Pleuritic Pain, Sputum, Wheezing Cardiovascular: negative: chest pain, palpitations, orthopnea, paroxysmal nocturnal dyspnea, edema, light headedness, other Gastrointestinal: negative: Nausea, Vomiting, Abdominal Pain, Diarrhea, Constipation, Melena, Hematochezia, Other Genitourinary: negative: Dysuria, Frequency, Incontinence, Hematuria, Retention , Other Musculoskeletal: negative: Neck Pain, Shoulder Pain, Arm Pain, Back Pain, Hand Pain, Leg Pain, Foot Pain, Other Skin: negative: Rash, Lesions, Adam, Bruising, Other - Medications/Allergies Allergies/Adverse Reactions: Allergies Allergy/AdvReac Type Severity Reaction Status Date / Time morphine Allergy Severe Anaphylaxis Verified 03/22/18 06:51 codeine Allergy Verified 03/22/18 06:51 metoclopramide HCl Allergy Verified 03/22/18 06:51 [From Reglan] tizanidine [From Zanaflex] Allergy Verified 03/22/18 06:51 Medications: Current Medications Acetaminophen (Tylenol) 650 mg PO Q4H PRN PRN Reason: Headache/Fever or Pain Last Admin: 03/22/18 03:07 Dose: 650 mg Hydrocodone Bitart/Acetaminophen ([place] 10/325) 1 tab PO Q4H PRN PRN Reason: Breakthrough Pain Last Admin: 03/23/18 03:24 Dose: 1 tab Al Hydroxide/Mg Hydroxide (Maalox) 30 ml PO Q6H PRN PRN Reason: Heartburn or Indigestion Albuterol/Ipratropium (Duoneb) 3 ml NEB [id number] PRN PRN Reason: SOB &/or Wheezing Amlodipine Besylate (Norvasc) 10 mg PO DAILY [facility] Last Admin: 03/22/18 08:58 Dose: 10 mg Artificial Tears (Tears Naturale) 0 drop EA EYE PRN PRN PRN Reason: Dry Eyes Atenolol (Tenormin) 50 mg PO DAILY [facility] Last Admin: 03/22/18 08:57 Dose: 50 mg Cefdinir (Omnicef) 300 mg PO BID [facility] Last Admin: 03/22/18 21:26 Dose: 300 mg Dextrose/Water (Dextrose 50%) 25 gm SLOW IVP PRN PRN PRN Reason: Hypoglycemia Enoxaparin Sodium (Lovenox) 40 mg SC 0900 [facility] Last Admin: 03/22/18 08:57 Dose: 40 mg Gabapentin (Neurontin) 600 mg PO BID [facility] Last Admin: 03/22/18 21:27 Dose: 600 mg Glucagon (Glucagon) 1 mg IM PRN PRN PRN Reason: Hypoglycemia Guaifenesin (Robitussin Sf) 200 mg PO Q4H PRN PRN Reason: Cough Guaifenesin (Mucinex) 600 mg PO Q12HR [facility] Last Admin: 03/22/18 21:27 Dose: 600 mg Hydralazine HCl (Apresoline) 10 mg SLOW IVP Q4H PRN PRN Reason: Systolic BP > 180 Dextrose/Water (D5w) 1,000 mls @ 0 mls/hr IV .Q0M PRN; As Directed PRN Reason: Hypoglycemia Insulin Glargine 25 units/ (Miscellaneous Medication) 0.25 mls @ 0 mls/hr SC [facility] Last Admin: 03/22/18 21:29 Dose: 0.25 mls Insulin Human Lispro (Humalog) 0 units SC .AGGRESSIVE SLIDING PRN PRN Reason: Aggressive Correctional Scale Last Admin: 03/23/18 06:40 Dose: 6 unit Insulin Human Lispro (Humalog) 0 units SC .BEDTIME SLIDING SC PRN PRN Reason: Bedtime Correctional Scale Last Admin: 03/22/18 21:29 Dose: 2 unit Levothyroxine Sodium (Synthroid) 50 mcg PO 0600 [facility] Last Admin: 03/23/18 05:56 Dose: 50 mcg Loperamide HCl (Imodium) 2 mg PO PRN PRN PRN Reason: Diarrhea/Loose Stools Magnesium Hydroxide (Milk Of Magnesium) 30 ml PO DAILYPRN PRN PRN Reason: Constipation Mineral Oil/White Petrolatum (Eucerin Cream) 0 gm TOP BIDPRN PRN PRN Reason: Dry Skin Ondansetron HCl (Zofran Odt) 4 mg PO Q6H PRN PRN Reason: Nausea/Vomiting Ondansetron HCl (Zofran) 4 mg IVP Q6H PRN PRN Reason: Nausea/Vomiting Last Admin: 03/22/18 03:13 Dose: 4 mg Pantoprazole Sodium (Protonix) 40 mg PO DAILY [facility] Paroxetine HCl (Paxil) 40 mg PO DAILY [facility] Last Admin: 03/22/18 08:59 Dose: 40 mg Phenol (Chloraseptic White 180 Ml Bot) 0 ml PO PRN PRN PRN Reason: Sore Throat Pravastatin Sodium (Pravachol) 40 mg PO [facility] Last Admin: 03/22/18 21:27 Dose: 40 mg Senna (Senokot) 2 tab PO HSPRN PRN PRN Reason: Constipation Sodium Chloride (Fate Nasal White 0.65%) 0 ml EA NARE QIDPRN PRN PRN Reason: Nasal Congestion Sodium Chloride (Flush - Normal Saline) 10 ml IVF Q12HR [facility] Last Admin: 03/22/18 21:27 Dose: Not Given Sodium Chloride (Flush - Normal Saline) 10 ml IVF PRN PRN PRN Reason: Saline Flush
[2018-03-23] MEDS: PARoxetine 20 MG TAB PO SCH (09:47)
[2018-03-23] MEDS: Amlodipine 10 MG TAB PO SCH (09:47)
[2018-03-23] MEDS: guaiFENesin ER 600 MG TAB PO SCH (09:47)
[2018-03-23] MEDS: Gabapentin 300 MG CAP PO SCH (09:47)
[2018-03-23 11:58] VITALS: TEMP 96.4
--- NOTE | 2018-03-23 12:16 | PRG ---
DATE OF SERVICE: 03/23/2018 SUBJECTIVE: This morning, she is better. She is going home. PHYSICAL EXAMINATION: VITAL SIGNS: Sats are 98 on 3 liters, respiratory rate 12, pulse 62, temperature 98, blood pressure 130/75. CHEST: No wheezing, no crackle. CARDIAC: Normal S1, S2. No gallops. ABDOMEN: Soft. No guarding, mass. IMPRESSION: Morbid obesity, sleep apnea, chronic obstructive pulmonary disease, asthma. Labs looks okay. PLAN: She is going to be discharged home to be followed by a physician at [facility] . She can se e Dr. Kimble if she wants for sleep apnea.
[2018-03-23 18:03] VITALS: BP 123/63
== END 2018-03-23 12:32 | disposition home or self-care (01) | DRG 917 ==
LOC: ERS 11:35 → ERHOLD 15:01 → IMCU/EMU 18:31
PROVIDERS: ADMIT Internal Medicine; ATTEND Internal Medicine
PROC: 5A09457 Assistance with Respiratory Ventilation, 24-96 Consecutive Hours, Continuous Positive Airway Pressure (ICD-10-PCS; principal; 2018-03-21)
DX: T40.2X1A Poisoning by other opioids, accidental (unintentional), initial encounter (principal); G92 Toxic encephalopathy; J96.12 Chronic respiratory failure with hypercapnia; J96.11 Chronic respiratory failure with hypoxia; E66.2 Morbid (severe) obesity with alveolar hypoventilation; Z68.43 Body mass index [BMI] 50.0-59.9, adult; I50.32 Chronic diastolic (congestive) heart failure; I11.0 Hypertensive heart disease with heart failure; J40 Bronchitis, not specified as acute or chronic; E11.65 Type 2 diabetes mellitus with hyperglycemia; G89.4 Chronic pain syndrome; K21.9 Gastro-esophageal reflux disease without esophagitis; E78.5 Hyperlipidemia, unspecified; E03.9 Hypothyroidism, unspecified; E11.40 Type 2 diabetes mellitus with diabetic neuropathy, unspecified; M79.7 Fibromyalgia; M32.9 Systemic lupus erythematosus, unspecified; F41.9 Anxiety disorder, unspecified; F32.9 Major depressive disorder, single episode, unspecified; I25.10 Atherosclerotic heart disease of native coronary artery without angina pectoris; J44.9 Chronic obstructive pulmonary disease, unspecified; Z99.81 Dependence on supplemental oxygen; Z91.19 Patient's noncompliance with other medical treatment and regimen; Y92.009 Unspecified place in unspecified non-institutional (private) residence as the place of occurrence of the external cause
CPT/HCPCS: 36415; 36416; 70450; 71045; 80048; 80053; 80306; 80307; 81003; 82140; 82553; 82805; 83690; 83735; 83880; 84443; 84484; 85025; 87040; 87086; 93005; 94660; 94760; A4216; C9113; G8978-GP-CI; G8979-GP-CI; G8980-GP-CI; J1650; J1940; J2310; J2405